=== PATIENT | male | born 1975 | race Caucasian/White ===

== ENCOUNTER → 2017-12-19 10:08 | Outpatient (CLI) | payer MEDICAID | END | disposition home or self-care (01) | LOC: D.MRI 10:00 | DX: G62.9 Polyneuropathy, unspecified (principal) ==

== ENCOUNTER 2018-07-03 22:47 | Emergency (ER) | payer MEDICARE ==
[~2018-07-03] VITALS: Ht 188 cm; Wt 123.2 kg
[2018-07-03 22:50] VITALS: Ht 188 cm; Wt 123.2 kg
[2018-07-04 02:40] VITALS: BP 113/72
== END 2018-07-04 04:51 ==
LOC: D.ER 22:47
DX: K59.00 Constipation, unspecified (principal); K56.41 Fecal impaction; G82.20 Paraplegia, unspecified